=== PATIENT | male | born 1965 | race Caucasian/White ===

== ENCOUNTER 2018-04-13 13:45 | Outpatient (RCR) | payer BC, SELFPAY ==
--- NOTE | 2018-03-23 14:51 | NT_ITS ---
March 23, 2018 Richard's telephoned dept to cancel for they will be unable to attend PT evaluation this afternoon due to being unable to get into the truck. Richard was just discharged from the hospital yesterday s/p bilateral TKR. Have rescheduled for next week.
--- NOTE | 2018-03-27 08:00 | IE_ITS ---
Date: March 27, 2018 Referring: Dr. Cara Marley Diagnosis: s/p bilateral TKR P.T. Diagnosis: s/p bilateral TKR SUBJECTIVE: History of Present Illness: Richard is 53 year old male s/p bilateral TKR on via Dr. Marroquin. He was discharged home on and was initially scheduled for PT evaluation on Monday. He notes he was unable to get into his truck to get him to his evaluation. He has been completing his HEP issued at time of hospital discharge. He has a CPM that he is utilizing 3x day on each leg. He reports that he is icing frequently. He notes a little fogginess secondary to the medication. He does have 5 steps to enter his home. He utilizes standard axillary crutches primarily for ambulation however does also have a walker at home if needed. He is currently living on one level. He does have a 2 story home. He notes that he follows up with his surgeon on the 04 of April. Pain Ratin-9/10, morning seems to be worse. Increased stiffness, trouble getting comfortable Pain Location: bilateral anterior knees Prior Level of Function: Independent Current Level of Function: limited ADL's, gait, balance, out of work since surgery. Previous Treatment: Orthopedics, x3 ACL reconstruction to the right knee Social: He lives at home with his . 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 He remains out of work. Comorbidities: Hypertension, RA, s/p right knee ACL/MCL reconstruction Falls in the last year: No Reported hospitalizations in the last year - Yes - Dates of admission/reason: s/p TKR bilateral admission on 03/19/18; discharged on 03/22/18 Medications: Lisinopril, hydrochlorothiazide, Yeimi, Multi Vitamin, Omeprazole Quality of Life: Good Standardized Measures: LEFS score: 94 % perceived disability rating OBJECTIVE: Posture: Mild forward head and shoulders. Observation: Difficulty with functional transfers due to minimal knee flexion. Needed assist x2 to get out of the car into his appt this am. His incisions are healing well without signs of infection. Gait: He is ambulating with standard axillary crutches WBAT with limited flexion of bilateral knees. Edema: Negative pitting edema bilateral LE. CARLY stockings in place on bilateral LE for edema management. Along with Gary wrap to up above knee. Girth measurements: superior pole patella right 51 cm left 50 cm; mid patellar pole right 49 cm, left 46 cm; inferior patellar pole right 45 cm, left 42 cm ROM: Active right knee ROM 0-75 degrees, Active left knee ROM 0-80 degrees. AAROM right knee 0-80 degrees. AAROM left knee 0-85 degrees. Demonstrates full AROM of bilateral ankles. AAROM of bilateral hips WFLs. Joint Accessory Motion: Good patellar mobility throughout all planes bilateral knees. Hypomobility with anterior glides of the tibiofemoral joints. Strength: Independent SLR left without extension lag. Mild extension lag with the right. No other formal strength assessment performed. Neuro: Intact to light touch. Treatment: IE: 62489 Patient Education: in promotion of HEP with focus on bilateral knee ROM. Manual therapy: Performed patellofemoral joint mobilization all planes to bilateral knees. Tibiofemoral joint mobilization Gr II/III anterior glides in seated position and posterior glides in supine. P/AAROM performed with focus on end range flexion. Ended with cryotherapy to to bilateral knees along with unattended estim for pain and edema management with use of wedge pillow for elevation. This was applied for 15 minutes to end todays session. Direct treatment time: 45 minutes Total treatment time: 60 [id number] ASSESSMENT: Patient is a 53-year-old male, referred for PT services with the diagnosis of s/ p bilateral TKR. Patient presents with clinical signs and symptoms consistent with diagnosis, as demonstrated by the following impairment level findings: impaired joint mobility, muscle performance, motor function, edema, pain, gait and balance. Impairments are contributing to the following functional limitations: limited ADL tolerance, gait, balance, stair negotiation, LEFS 94%. Patient is assessed as: Low 15076 complexity, based on the following: History: See comorbidities and social history. Examination: See above for functional limitations and impairments. Presentation: Stable . Decision-Making: Low complexity 94 % Disability based on LEFS Patient requires skilled PT intervention to remediate the above functional limitations to return to: __X__ Premorbid level of function __X__ Return to full functional mobility __X__ Return to work demands __X__ Improve QOL Prognosis: Excellent STG: __6__ weeks. 1. Patient demonstrate 110 degrees of knee flexion with 0 degrees extension bilaterally. 2. Demonstrate non-antalgic gait with reduced need for assistive device. 3. Able to ascend and descend 5 stairs to enter his home with use of railing with manageable symptoms. 4. Reduced PDR by 50% or greater via LEFS. LTG: __12__ weeks. 1. Return to premorbid level of function. 2. Return to full, pain-free, functional mobility. 3. Independent with self-maintenance program. 4. Demonstrate WFL AROM of bilateral knees. 5. Ambulate without antalgia without assistive device. 6. Reduced PDR to less than 25 % or greater. PLAN: Patient to be seen 2-3 x per week, for 12 weeks, adjusting frequency of visits per patient symptoms and response to treatment. Treatment to include: Manual therapy - 39575: Patellofemoral/tibiofemoral joint mobilizations all planes, A/AA/PROM, soft tissue stretching, scar mobilization, STM Therapeutic exercise - 80392. open and closed chain strength and stabilization per TKR protocol advancing within symptom allowance promoting ADL function and return to work. Modalities will be utilized as needed for pain and edema management. Will plan on discharge when above goals have been met. Thank you for this referral. Please do not hesitate to contact me with any questions or concerns regarding this patient's plan of care.
--- NOTE | 2018-03-30 09:39 | PTTR_ITS ---
DATE: 03/30/18 SUBJECTIVE: Richard states that he continues to have a difficult time sleeping as he is not able to find a comfortable position. Indicated that he took his muscle relaxer last night with slight improvement in symptoms. OBJECTIVE: Manual therapy: ([id number]). mobilizations of bilateral tib/fem jt including posterior and anterior glides, P /AAROM in seated and supine positions using MET's. Patella glides in all directions as well as stretching of hamstrings, ITB. LE distractions via leg pulls. STM t/o hamstrings and quads. MLD t/o knees. I provided kinesiotape to knees for swelling. He achieved approx 85 degrees of flex on right and 90 on left. Full extension post mobs AA. Therapeutic procedures ([id number]). * x HEP review: * x See flow sheet: initiated an inclinc routine for global LE strength and stabilization. Nu step for ROM. * x Provided skilled instruction in proper exercise performance: proper quad engagement * x Electrical Stim Unattended - [id number]: premodulated for swelling with cryo x 15 min bilaterally. Direct treatment time: 50 min Total treatment time: 65 min
--- NOTE | 2018-04-02 15:35 | PTTR_ITS ---
DATE: 04/02/18 SUBJECTIVE: Richard states that he is not feeling well today. He indicated that he has started taking his BP med and is questioning if it is too much. He c/o feeling weak, shaky, sweaty and unsteady. OBJECTIVE: Manual therapy: ([id number]). mobilizations of bilateral tib/fem jt including posterior and anterior glides, distractions and ROM into flex and ext in seated and supine positions. Stretching of hamstrings, ITB and hip flex/quads in modified Clem test position. LE distractions with over pressure into ext. Patella glides in all directions. MLD t/o bilateral knees. BP at beginning of session was 98/60 and end of session was 94/56. Held on ther ex today due to low BP. I did encourage him to contact his PCP regarding BP med. * x Electrical Stim Unattended - [id number]: premodulated x 15 min with cryo and elevation. Direct treatment time: 45 min Total treatment time: 60 min
--- NOTE | 2018-04-05 14:45 | PTTR_ITS ---
DATE: April 05, 2018 SUBJECTIVE: Richard notes that he followed up with his surgeon. They are pleased with how they are healing however he really needs to focus on his flexion mobility. He reports that the medications he is taking are still causing a lot of havoc on his stomach and continues to be constipated. He reports this morning he felt fairly good and got up sat in his recliner and fell asleep until noon. He reports compliancy with his HEP. He has not done any stretches today nor has he been in his CPM today due to time constraints with appt. He follows up with his surgeon again in mid Apr. If no improvement in his flexion at that time a manipulation might be needed. He also notes that they decreased his medication for his blood pressure. It has been much better over the last couple of days. He continues to monitor it at home as well. OBJECTIVE: Manual therapy: ([id number]).Patellofemoral joint mobilization all planes to bilateral knees. Seated tibiofemoral joint mobilization anterior glides Gr III. Posterior glides in supine Gr III. P/AAROM performed throughout bilateral knees with focus on terminal knee flexion bilaterally. Continues to demonstrate full extension. Soft tissue stretching of bilateral hamstring also provided. Utilized contract relax techniques to promote knee flexion. Knee flexion 90 degrees with 0 degrees extension. Therapeutic procedures ([id number]). * X HEP review: Focusing on active knee flexion. * X See flow sheet: Open and closed chain LE strength and stabilization. * X Provided skilled instruction in proper exercise performance: promoting proper quad activation. Encouraging knee flexion with sit to stand transfer. Cueing for proper gait mechanics with use of single axillary crutch. Patient avoiding knee flexion with use of hip circumduction. Improved with cueing. * X Provided skilled manual cues to facilitate proper muscle recruitment and/ or movement pattern: Electrical Stim Unattended : Provided post session along with cryotherapy to bilateral knees for 15 minutes with use of wedge pillow for elevation. Will increase Richard to 3x per week to promote more aggressive ROM especially with flexion. Direct treatment time: 45 minutes Total treatment time: 60 minutes
--- NOTE | 2018-04-06 11:57 | PTTR_ITS ---
DATE: 04/06/18 SUBJECTIVE: Richard states that he is doing fair today. He is feeling stiffer than usual but admits that he is first thing in the am. OBJECTIVE: Manual therapy: ([id number]). session began with 8 min of MHP to bilateral quads. He then received mobilizations of bilateral tib/fem jt including posterior and anterior glides, P /AAROM using MET's in seated and supine positions. Stretching of hamstrings, ITB and hip flex/quads in modified Clem test position. Patella glides in all directions as well as scar tissue work and STM t/o quads and ITB. MLD t/o knees. He did perform Nu step x 8 min. He achieved 88 degrees of flex on right and 95 on left AA post mobs. * x Electrical Stim Unattended - [id number]: ended with premodulated stim for edema x 15 min with cryo and elevation. Direct treatment time: 45 min Total treatment time: 65 min.
--- NOTE | 2018-04-09 08:03 | PTTR_ITS ---
DATE: 04/09/18 SUBJECTIVE: Richard states that he feels much looser today. He indicates that he continues with his CPM as well as staying on top on ROM t/o the day. Icing and elevating. He reports waking this am with very little to no swelling. OBJECTIVE: Manual therapy: ([id number]). MHP to quads x 8 min. Mobilizations of bilateral tib/fem jt including posterior and anterior glides, P/AAROM using MET's in seated and supine positions. Stretching of hamstrings, ITB and hip flex/quads in modified Clem test position. LE distractions with over pressure into extension. Patella glides in all directions. Scar tissue work bilaterally as well as STM of quads and ITB. He achieved 95 flex on right and 98 flex on left post mobs in hooklying. Therapeutic procedures ([id number]). * x See flow sheet: for global LE strength and stabilization. * x Provided skilled instruction in proper exercise performance: proper quad and glut engagement. * x Electrical Stim Unattended - [id number] N/C: ended with pre modulated stim and cryo for swelling x 15 min at no charge. Direct treatment time: 60 min Total treatment time: 75 min (no charge for stim)
--- NOTE | 2018-04-13 13:45 | PTTR_ITS ---
DATE: April 13, 2018 SUBJECTIVE: Richard reports that he has had a couple of rough days. Noting increased irritation into the left knee. He reports continued compliancy with his CPM obtaining 106 degrees. He is trying to spend an hour a day per knee. He has also been increasing his walking distance. He remains frustrated with his level of improvement and continues to stiffen quickly. OBJECTIVE: Manual therapy: ([id number]).Patellofemoral joint mobilization all planes to bilateral knees. Tibiofemoral joint mobilization anterior glides seated Gr III. Posterior glides supine Gr III. Soft tissue stretching to bilateral hamstrings, and SKC. P/AAROM promoting terminal knee flexion. Post mobilization ROM 0-100 degrees. Therapeutic procedures ([id number]). * X See flow sheet: Continued advancement within symptom allowance of open and closed chain strengthening. Encouraged proper gait mechanics on treadmill ambulating 1/4 of a mile. * X Provided skilled instruction in proper exercise performance: promoting body mechanics and avoidance of compensatory movement patterns. Patient continues to have a tendency to circumduct his hip vs flexing his knee for swing phase of gait as well as stepping up onto a small step. With cueing does correct. Improved mechanics with sit to stand - significantly less compensation noted. * X Provided skilled manual cues to facilitate proper muscle recruitment and/ or movement pattern: Ended with cryotherapy to bilateral knees for 10 minutes post session. Will monitor response to progression of program. Continued to emphasize frequent flexion stretching. Extension full. Improved tolerance with sit to stand transfer with improved knee bend. Direct treatment time: 60 minutes Total treatment time: 70 minutes
== END 2018-04-13 23:59 | disposition home or self-care (01) ==
LOC: PT 13:45
PROVIDERS: Referring Provider Orthopaedic Surgery; Visit Provider Orthopaedic Surgery
DX: Z47.1 Aftercare following joint replacement surgery (principal); Z96.653 Presence of artificial knee joint, bilateral
CPT/HCPCS: 97014; 97110; 97140; 97161